=== PATIENT | male | born 1990 | race Caucasian/White ===

== ENCOUNTER 2022-01-31 17:06 | Outpatient (CLI) | payer MEDICAID, SELFPAY ==
--- NOTE | 2022-01-31 17:08 | RAD_ITS ---
STUDY: X-RAY - RIGHT KNEE REASON FOR EXAM: Male, 31 years old. Pain. TECHNIQUE: 4 view(s) of the knee. COMPARISON: None. FINDINGS: Normal visualized distal femur. Normal visualized proximal tibia and fibula. Normal proximal tibiofibular articulation. There is no acute fracture, dislocation or destructive osseous pathology. Normal medial femorotibial compartment. Normal lateral femorotibial compartment. Normal patellofemoral articulation. There is no demonstrated joint effusion. The soft tissue structures are unremarkable. RAD/Knee 4 or More Views IMPRESSION: Normal x-ray examination of the knee. Electronically Signed: Andrei Gutierrez DO at 18:01 EDT ,
== END 2022-01-31 23:59 | disposition home or self-care (01) ==
PROVIDERS: PCP Family Medicine; Referring Provider Physician Assistant; Visit Provider Physician Assistant
DX: M25.561 Pain in right knee (principal)
CPT/HCPCS: 73564

== ENCOUNTER 2022-02-08 09:58 | Outpatient (CLI) | payer MEDICAID, SELFPAY ==
--- NOTE | 2022-02-08 10:03 | RAD_ITS ---
STUDY: X-RAY - RIGHT TIBIA AND FIBULA REASON FOR EXAM: Male, 31 years old. hit right calf against his truck tailgate recently, pain TECHNIQUE: 2 view(s) of the tibia and fibula were obtained. COMPARISON: None. FINDINGS: Normal visualized tibia. Normal visualized fibula. The soft tissue structures are unremarkable. RAD/Tibia & Fibula 2 Views IMPRESSION: Normal x-ray examination of the tibia and fibula. Electronically Signed: Tapan Caputo MD ([place]) at 10:24 EDT ,
--- NOTE | 2022-02-08 10:03 | RAD_ITS ---
STUDY: X-RAY - RIGHT FOOT CLINICAL: Male, 31 years old. PAIN IN METATARSUS TECHNIQUE: 3 view(s) of the foot. COMPARISON: None. FINDINGS: Normal talus, calcaneus, and tarsal bones. There is loss of definition of the third more than secondary tarsal-metatarsal articulations. Small accessory ossicles adjacent to the calcaneocuboid articulation. Normal metatarsi. Normal metatarsophalangeal joint of the great toe. Normal tibial and fibular sesamoid bones. Normal interphalangeal joint of the great toe. Normal phalanges of the great toe. Normal second through fifth metatarsophalangeal joints. Normal interphalangeal joints and phalanges of the lesser toes. The soft tissue structures are unremarkable. RAD/Foot min 3 Views IMPRESSION: 1. No fracture or erosive process. 2. Possible fusion of the third and second tarsal-metatarsal articulations, query coalition/ankylosis. Electronically Signed: Tapan Caputo MD ([place]) at 10:24 EDT ,
== END 2022-02-08 23:59 | disposition home or self-care (01) ==
LOC: MTRAD 10:02
PROVIDERS: PCP Family Medicine; Referring Provider Family Medicine; Visit Provider Family Medicine
DX: M89.8X7 Other specified disorders of bone, ankle and foot (principal); M89.8X6 Other specified disorders of bone, lower leg
CPT/HCPCS: 73590; 73630

== ENCOUNTER 2022-06-14 09:27 | Outpatient (CLI) | payer MEDICAID, SELFPAY ==
--- NOTE | 2022-06-14 09:29 | RAD_ITS ---
STUDY: X-RAY - LEFT SHOULDER REASON FOR EXAM: Male, 31 years old. Pain following injury. TECHNIQUE: 4 view(s) of the shoulder. COMPARISON: None. FINDINGS: Normal glenohumeral articulation. Normal acromioclavicular joint. Normal acromion. Normal humeral head and visualized proximal humerus. The soft tissue structures are unremarkable. Normal visualized pulmonary apex. RAD/Shoulder min 2 Views IMPRESSION: Normal x-ray examination of the shoulder. Electronically Signed: Rip Taveras MD at 10:00 EDT ,
== END 2022-06-14 23:59 | disposition home or self-care (01) ==
LOC: MTRAD 09:29
PROVIDERS: PCP Family Medicine; Referring Provider Physician Assistant; Visit Provider Physician Assistant
DX: S49.92XA Unspecified injury of left shoulder and upper arm, initial encounter (principal)
CPT/HCPCS: 73030

== ENCOUNTER → 2022-06-25 | Outpatient (CLI) | payer MEDICAID, SELFPAY ==
--- NOTE | 2022-06-25 08:00 | MRI_ITS ---
STUDY: MRI LEFT SHOULDER REASON FOR EXAM: Decreased range of motion of left shoulder for 2 weeks, left shoulder injury, evaluate for rotator cuff tear. TECHNIQUE: Standardized fat and water weighted pulse sequences were obtained in all 3 orthogonal planes. COMPARISON: Radiographs 06/14/2022. FINDINGS: There is mild supraspinatus tendinosis (T2 coronal images 12-15) without discrete rotator cuff tear. Normal infraspinatus tendon. Normal subscapularis tendon. Normal teres minor tendon. Normal supraspinatus muscle. Normal infraspinatus muscle. Normal subscapularis muscle. Normal teres minor muscle. Normal glenohumeral articulation. There is a bone contusion of the greater tuberosity (T2 coronal images 11-14). There is a suspected SLAP lesion (T2 coronal images 9-13). Normal intracapsular long biceps tendon. Normal capsulo- ligamentous complex. Normal acromioclavicular articulation. There is a Type II morphology (curved), with a neutral orientation. There is a small volume of subacromial-subdeltoid bursal fluid (T2 coronal images 9-13). Normal visualized coracohumeral and coracoacromial ligaments. Normal deltoid muscle. Normal trapezius muscle. MRI/Upper Ext Joint Only(Routine) IMPRESSION: Mild supraspinatus tendinosis without demonstrated rotator cuff tear. Bone contusion of the greater tuberosity. Suspected SLAP lesion. Mild subacromial-subdeltoid bursitis. Electronically Signed: Calderon Myers MD at 9:10 EDT ,
== END | disposition home or self-care (01) ==
LOC: MRI 08:00
PROVIDERS: PCP Family Medicine; Visit Provider Orthopaedic Surgery Sports Medicine
DX: S46.012A Strain of muscle(s) and tendon(s) of the rotator cuff of left shoulder, initial encounter (principal); S40.012A Contusion of left shoulder, initial encounter
CPT/HCPCS: 73221

== ENCOUNTER 2022-09-24 16:30 | Outpatient (RCR) | payer MEDICAID, SELFPAY ==
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
--- NOTE | 2022-11-06 10:02 | HP.PT.NRP ---
IRENA TOURE was seen in my office for initial evaluation on 08/20/22. The following Plan of Care was established for this patient: Initial Frequency: 2x /Week Initial Duration: 4 Weeks Patient/Client Instruction: Educate patient on: Condition, Plan of Care For the Purpose of:: To decrease pain, To increase ROM, To improve muscle performance and motor function, To improve ability to perform ADL's, To increase tolerance to activity/condition/position, To improve ability of physical actions for home/community/work/leisure, To improve health of tissue, To decrease soft tissue restriction, To increase flexibility/ROM, To reduce risk of recurrence, To prevent re-injury, To improve tolerance to ADL's Therapeutic Exercise to Include: Strength training, Postural training, Flexibilty training, Passive ROM, Active ROM, Scapular Strength/Stabilization For the Purpose of:: To decrease pain, To increase ROM, To improve muscle performance and motor function, To improve ability to perform ADL's, To increase tolerance to activity/condition/position, To improve performance and independence with ADL's, To improve ability of physical actions for home/community/work/leisure, To improve health of tissue, To decrease soft tissue restriction, To increase flexibility/ROM, To prevent re-injury, To improve tolerance to ADL's Manual Therapy Techniques to Include: Mobilization, Passive ROM Comment: G-H For the Purpose of:: To decrease pain, To increase ROM, To improve health of tissue, To decrease soft tissue restriction, To improve tolerance to ADL's TENS: Yes IF ES: Yes Cryotherapy (ice pack, ice massage): Yes Thermo therapy (hot pack): Yes Ultrasound (thermal/non thermal): Yes For the Purpose of:: To decrease pain, To decrease swelling/inflammation, To improve health of tissue, To decrease soft tissue restriction This patient was last seen in our office . Pertinent comments regarding their Physical therapy will appear below: Patient was seen for PT for labral tear for ROM and strength shoulder thus doing well adequate to HEP At this point I will be discontinuing this patient from physical therapy. I would be happy to see this patient again in the future if found appropriate by the physician. Thank you! Tank Clifford, PT, Cert MDT, OCS Balance/Gait/Functional tests - Balance/Special Test Scores Quick DASH Score: 13.6350
== END 2022-09-24 19:00 | disposition home or self-care (01) ==
LOC: PT 16:30
PROVIDERS: PCP Family Medicine; Referring Provider Orthopaedic Surgery Sports Medicine; Visit Provider Orthopaedic Surgery Sports Medicine
DX: S43.432D Superior glenoid labrum lesion of left shoulder, subsequent encounter (principal); S40.012D Contusion of left shoulder, subsequent encounter; S46.012D Strain of muscle(s) and tendon(s) of the rotator cuff of left shoulder, subsequent encounter; X58.XXXD Exposure to other specified factors, subsequent encounter
CPT/HCPCS: 97110; 97161

== ENCOUNTER 2024-01-08 10:56 | Day surgery (SDC) | payer OTHER, SELFPAY ==
[2024-01-08] VITALS (8 sets, daily range): BP systolic 141–186; BP diastolic 88–157; PULSE 79–113; RESP 16–17; TEMP 36.2–37.2; O2SAT 96–100; BMI 21.4
--- OUTSIDE RECORDS SUMMARY | 2024-01-08 11:21 | XMS RPT_ITS | CCD ---
Author Name Unknown Address [facility] [address] [place] [address] Organization [facility] Care Team Providers Care Full Stack Engineer Name Role Phone Shreyas Hutchison Admitting Unavailable Shreyas Hutchison Attending Unavailable No Doctor Assigned, Nodr Primary Care Unavail able Shreyas Hutchison Admitting Unavailable Shreyas Hutchison Attending Unavailable No Doctor Assigned, Nodr Primary Care Unavail able CANDIE PRINCE Attending Unava ilJIMMIE Pro Primary Care Unavailable Results Test Name Value Interpretation Reference Range Facil ity Encounters Encounter Date Encounter Type Care Provider Facility Start: 05-05-2021 End: 05-05-2021 Emergency department patient visit CANDIE PRINCE [facility] Start: 03-14-2019 End: 03-15-2019 Patient encounter procedure Shreyas Hutchison Facility:[facility] Start: 03-14-2019 Patient encounter procedure Facility:[id number] Payers Date Payer Category Payer Unknown [id number] 2019 Unknown 1990 Unknown [id number] 1990 Unknown [id number] 1990 Unknown [id number] 2. [id number] 1990 Unknown [id number] 2.16 [id number] Unknown [id number] Clinical Note 07-10-2021 Note Date & Type Note Facility 07-10-2021 Note HNO ID: [id number] Author: Loren Mares RN Service: Gastroenterology Author Type: Registered Nurse Type: Nursing Progress Note Filed: 07/10/2021 3:29 PM Note Text: Physician at bedside [facility] Clinical Note 07-10-2021 Note Date & Type Note Facility 07-10-2021 Note HNO ID: [id number] Author: Loren Mares RN Service: Gastroenterology Author Type: Registered Nurse Type: Nursing Progress Note Filed: 07/10/2021 3:40 PM Note Text: Patient states readiness for discharge. Assisted with dressing. [facility] Clinical Note 07-10-2021 Note Date & Type Note Facility 07-10-2021 Note HNO ID: [id number] Author: Loren Mares RN Service: Gastroenterology Author Type: Registered Nurse Type: Nursing Progress Note Filed: 07/10/2021 3:40 PM Note Text: Discharge instructions reviewed with patient. States understanding [facility] Progress note 05-25-2021 Note Date & Type Note Facility 05-25-2021 Note HNO ID: [id number] Author: Heather Pendleton APRN.DAJA Service: ? Author Type: Nurse Practitioner Type: Progress Notes Filed: 05/25/2021 1:00 PM Note Text: [facility] Summary Purpose Family History No Family History Records FoundNo Family History Records FoundNo Family History Records FoundNo Family History Records FoundNo Family History Records Found Advance Directives No Advanced Directives Records FoundNo Advanced Directives Records FoundNo Advanced Directives Records FoundNo Advanced Directives Records FoundNo Advanced Directives Records Found Additional Source Comments (unrecognized sect ion and content) No Status Records FoundNo Status Records FoundNo Status Records FoundNo Status Records FoundNo Status Records Found INFORMATION SOURCE (unrecogn ized section and content) DATE CREATED AUTHOR AUTHOR'S ORGANIZ ATION 03/25/2019 [facility] DATE CREATED AUTHOR AUTHOR'S ORGANIZ ATION 12/25/2020 [facility] ([place] DATE CREATED AUTHOR AUTHOR'S ORGANIZ ATION 05/12/2021 [facility] DATE CREATED AUTHOR AUTHOR'S ORGANIZ ATION 12/13/[address] [facility] FOR RECORDS PERTAINING TO PATIENTS WHO ARE OR HAVE BEEN ENROLLED IN A CHEMICAL DEPENDENCY/SUBSTANCEABUSE PROGRAM, SOME INFORMATION MAY BE OMITTED. This clinical summary was aggregated from multiple sources. Caution should be exercised in using it in the provision of clinical care. This summary normalizes information from multiple sources, and as a consequence, information in this document may materially change the coding, format and clinical context of patient data. In addition, data may be omitted in some cases. CLINICAL DECISIONS SHOULD BE BASED ON THE PRIMARY CLINICAL RECORDS. [facility]. provides no warranty or guarantee of the accuracy or completeness of information in this document.
[2024-01-08] MEDS: Lactated Ringers 1,000 ML 15 ML IV (11:23)
--- NOTE | 2024-01-08 13:04 | HP.PCM_ITS ---
HPI - General HPI Narrative IRENA TOURE, is a 33 M who presents for left shoulder arthroscopy subacromial decompression and biceps tenodesis. no changes to h and p. ok to proceed. shoulder marked. rab and narcotic counselling, post op instructions discussed. MR#: [id number] Acct: [id number] Name: IRENA TOURE Rep #: [id number] : 1990 Provider: Dr. Rickey Moura MD Age/Sex: 33/M [place] [facility] [place] Status: Signed Intake Vital Signs 08/13/2310:04 Height 5 ft 10 in Intake Visit Reasons: LEFT SHOULDER Chief Complaint: Left shoulder Accompanied by: Self Is patient in pain?: Yes Allergies No Known Allergies Allergy (Unverified 12/03/23 15:50) Medications NK 12/03/23 [History Confirmed 12/03/23] PFSH Medical History Contusion of left shoulder Impetigo Internal derangement of right knee Strain of left rotator cuff capsule Superior labrum eabuaxbe-bp-nmdsotfgm (SLAP) tear of left shoulder Surgical History Hx of vasectomy Family History Mother Heart disease Hypertension Social History Smoking Status: Current every day smoker tobacco type: cigarettes alcohol intake: current alcohol intake frequency: 0-2 drinks per day HPI LEFT SHOULDER Details: This documentation accurately reflects the service provided and the decisions made by me, Dr. Rickey Moura MD 12/03/23 1010. Part of today?s visit was documented by [ ], acting as scribe. IRENA TOURE is a 33 year old M here today for FU L shoulder pain, slap tear, contusion and impingement syndrome. Had a cortisone injection. 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 worse with abduction. Ortho Exam General General: Yes no acute distress and Yes well groomed Neurologic: Yes alert and Yes oriented x3 Psychologic: Yes reasonable and appropriate Left Shoulder Skin/Wound: Yes CDI, No ecchymosis, No erythema and No swelling Testing: Yes Hawkin's, Yes Neer's, Yes TTP Biceps, No Drop Arm and Yes [place] SHOULDER: ++ pain w even gentle rom Supplemental Info MRI/Upper Ext Joint Only(Routine) IMPRESSION: Mild supraspinatus tendinosis without demonstrated rotator cuff tear. Bone contusion of the greater tuberosity. Suspected SLAP lesion. Mild subacromial-subdeltoid bursitis. Electronically Signed: Calderon Myers MD at 9:10 EDT , Coding Level of Care Code Off vis,est,level 4 Diagnoses Superior labrum hofxsrrv-gp-spasohbuv (SLAP) tear of left shoulder S43.432A Contusion of left shoulder S40.012A Strain of left rotator cuff capsule S46.012A Assessment and Plan Assessment and Plan (1) Superior labrum yxndrvvx-os-txvhmkcrl (SLAP) tear of left shoulder: Status: Acute Plan: 33-year-old man with ongoing left shoulder pain. 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 I think this is more likely a bursitis and tendinitis rather than pain from a SLAP tear although he does occasionally complain of some mechanical symptoms of the shoulder. The options at this point would be again similar to prior rest ice anti- inflammatories he is taking those activity modifications rest cortisone injections or considering proceeding with left shoulder arthroscopy subacromial decompression and biceps tenodesis. We discussed the pros and cons risks and benefits of surgical management and the recovery associated with this 2 weeks in a sling 2 to 3 months prior to returning to any sort of significant strengthening and lifting. The patient understands he is a half a pack a day smoker is trying to quit but that can increase his risk of complications like infection and other things. He understands signed the consent form for left shoulder arthroscopy, subacromial decompression, biceps tenodesis. He understands no further questions or concerns Pros and cons risks and benefits were discussed with the patient including but not limited to infection, pain, stiffness, bleeding, damage to surrounding structures, neurovascular injury, recurrence or retear, failure or wear of hardware or fixation, instability, fracture, deep vein thrombosis and pulmonary embolism, anesthetic risks, , patient dissatisfaction, need for further surgery and other risks. Patient understood and wished to proceed with surgery, and signed the informed consent documentation.. [facility] Medical History Alcohol use Contusion of left shoulder Heartburn Impetigo Internal derangement of right knee Leg cramps MVP (mitral valve prolapse) Smoker Strain of left rotator cuff capsule Superior labrum ockuckyi-sp-jeqylgosn (SLAP) tear of left shoulder Home Medications meloxicam 15 mg tablet 15 mg PO DAILY PRN pain 12/30/23 [History Last Taken U nknown] Allergy/AdvReac Type Severity Reaction Status Date / Time No Known Allergies Allergy Verified 01/08/24 11:06 Family History Mother Heart disease Hypertension Surgical History Hx of vasectomy Social History Smoking Status: Current every day smoker tobacco type: cigarettes alcohol intake: current alcohol intake frequency: 0-2 drinks per day Vital Signs Vital Signs Vital Signs: 01/08/24 11:23 01/08/24 11:23 Temperature 99 F Temperature Source Temporal Pulse Rate 84 Respiratory Rate 17 Respiratory Pattern Normal Blood Pressure 164/93 H Blood Pressure Mean 116 Blood Pressure Source Monitor Blood Pressure Position Semi-Fowlers Blood Pressure Location Right Arm Pulse Ox 100 Oxygen Delivery Method Room Air Weight Weight: 149 lb 14.629 oz Body Mass Index (BMI) 21.4
[2024-01-08] MEDS: Cefazolin 2 GM in 0.9% Normal Saline (100mL Bag) 100 ML IV (13:28)
[2024-01-08] MEDS: Epinephrine (1 mg/ml) 1 MG/ML VIAL (13:52)
--- NOTE | 2024-01-08 14:44 | OP.PCM_ITS ---
Problems Associated Problem List Diagnoses (1) Superior labrum xkpiadqa-hb-qphrvralb (SLAP) tear of left shoulder: (2) Impingement of left shoulder: Report of Operation Date of Procedure: 01/08/24 Pre-Operative Diagnosis: Left shoulder impingement syndrome and SLAP tear Post-Operative Diagnosis: Same Surgery/Procedure Performed:: Left shoulder arthroscopy, subacromial decompression, biceps tenodesis and debridement limited Surgeon: Rickey Moura Type of Anesthesia: Block,Regional and General Anesthesiologist: Gerry Sims Estimated Blood Loss (mL): 50 Description of Procedure: Patient brought the operating room theater. Placed supine on the table. General anesthesia induced. 2 g IV Ancef administered prior to start of the procedure. Patient transferred to the left side up lateral decubitus beanbag positioner. Axillary roll used SCDs and legs all bony prominences padded. 10 p ounds of inline traction with the arm in 35 degrees of abduction was used. Upper extremity prepped and draped in the usual sterile fashion with chlorhexidine-based prep solution allowing over 3 minutes drying time prior to draping. Preoperative timeout performed to confirm the site patient with surgery. Began by inserting the scope into the intra-articular portion of the shoulder. Did a full diagnostic arthroscopy. Cartilage on the glenoid and humeral head was normal. Normal rotator interval normal, I made a standard inside-out spinal needle localized to anterior portal through the rotator interval just posterior to the biceps tendon. Biceps tendon had type 2 slap tear, performed intra articular tenotomy, smoothed remaining superior labrum. Slight cracking of posterior labrum. Slight fraying of the anterior labrum gently debrided. Slight undersurface fraying <10% of anterior leading edge SS, debrided to stable margins. Rest of cuff and SSc normal. arthroscope withdrawn into inserted into the subacromial space. Lateral portal established. Did a complete bursectomy for moderate amount of normal-appearing bursa. Did a subacromial decompression to flat margins, very mild downsloping. Arthroscopic pictures were taken and saved onto the system scope withdrawn. Next I turned my attention to performing the subpectoral biceps tenodesis. Identified the long head of the biceps tendon at the proximal upper medial aspect of the humerus just distal to the pectoralis major insertion. Made a small 1 inch incision over this carried dissection down through skin and subcutaneous tissue to meticulous hemostasis. Incised the fascia in line with skin incision. Dissected medial to the short head of the biceps. Dissected distally to the pectoralis major. Identified the long head of biceps deliver this through the incision. Shorten the tendon. Did the locking loop construct for the Arthrex internally locking biceps cortical button tension tight button. I used a #5 suture with the loop and around the tendon in the fashion according to the guide with the suture piercing distal to the locking loop and coming out the inferior surface of the tendon. Left approximately 3 cm from the musculotendinous junction. I then drilled unicortical hole in the mid aspect of the humerus. Thorough irrigation and suction performed followed by inserting the button flipping this uni cortically and tensioning the biceps down and cutting the suture short for knotless repair. Skin cleaned with wet dry dressing followed by closure of the portals with 3-0 Monocryl sutures and Steri-Strips Adaptic 4 x 4 gauze ABD dressing cloth tape and abduction pillow sling for the upper extremity. Patient woken up from the general anesthetic transferred off the operating table taken postanesthetic care unit in stable addition. All sponge needle instrument counts were correct no complications. cpt [id number], [id number], ?[id number] Complications none Admit VTE Documentation VTE Present on Admission: No VTE Mechan Device Prophylaxis: SCD's VTE Pharm Prophylaxis ordered?: No Reason prophylaxis not ordered:: Treatment Not Indicated Procedures Musculoskeletal [id number]: Other Procedure See Report
--- NOTE | 2024-01-08 14:55 | DCINST_ITS ---
Discharge Instructions Diet Discharge Diet: No restrictions Activity Ice area for (Minutes): 10 Lifting Restrictions: pendulums 4x/day, ok for gentle hand wrist elbow lifting, nothing over 5 lb Dressing / Incision Call your doctor if your incision/area has: Continuous Slow Oozing, Sudden Increased Bleeding, Increased Pain/ Swelling, Increased Redness, Foul Smelling Discharge and Swelling at the incision site Remove Dressing in: leave in place till F/U Follow Up Care Please Follow Up With: Rickey Moura MD Test Results: Test results from this visit will be discussed in further detail at your follow- up appointment, if applicable. Discharge Plan Admission Attending Provider: Rickey Moura Primary Care Provider: Noah Amador Instructions Patient Instructions: After Shoulder Arthroscopy Discharge Orders/Prescriptions Prescriptions: New oxycodone-acetaminophen [Endocet] 5-325 mg tablet 1 tab PO Q4H MDD 6 PRN (Reason: pain) 5 Days Qty: 30 0RF No Action meloxicam 15 mg tablet 15 mg PO DAILY PRN (Reason: pain) Referrals / Follow Up: Noah Amador MD [Primary Care Provider] - Rickey Moura MD [Med Staff - Active Staff] - Disposition Disposition (needs filled in before D/C Order can be placed): Home, Self Care
== END 2024-01-08 15:43 | disposition home or self-care (01) ==
LOC: SDC 10:59 → AC 11:00
PROVIDERS: PCP Family Medicine; Referring Provider Orthopaedic Surgery Sports Medicine; Visit Provider Orthopaedic Surgery Sports Medicine
PROC: (CPT 29805; principal; 2024-01-08 12:55)
DX: S43.432A Superior glenoid labrum lesion of left shoulder, initial encounter (principal); S40.012A Contusion of left shoulder, initial encounter; S46.012A Strain of muscle(s) and tendon(s) of the rotator cuff of left shoulder, initial encounter; M75.42 Impingement syndrome of left shoulder; M75.80 Other shoulder lesions, unspecified shoulder; Z98.52 Vasectomy status; F17.210 Nicotine dependence, cigarettes, uncomplicated; X58.XXXA Exposure to other specified factors, initial encounter
CPT/HCPCS: 29828; 29826; 01630; 64450; J7120; J2405

== ENCOUNTER 2024-04-01 07:30 | Outpatient (RCR) | payer OTHER, SELFPAY ==
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
--- NOTE | 2024-04-01 07:57 | HP.PTDCSUM ---
Discharge Summary D/C summary: It has been my pleasure to treat IRENA TOURE referred by Dr. Rickey Moura MD, with the diagnosis of L SLAP repair with biceps tenodesis 01/08/24 for a total of 6 visit(s). Discharge Date: 04/01/24 Please see the following information for a summary of their discharge status. Subjective Subjective: Pt reports that he is going to the gym and working out and feels good. Pt has no questions with the HEP that he was given last visit. Pain L shoulder: Pain Intensity (Out of 10): 2 Overall Improvement % Improvement: 95 Objective Objective/Function: AROM L shoulder WFL UE MMT R shoulder flex 17 and L 16.7 R shoulder ABD 16.3 and L 12 R shoulder ER 23.1 and L 17.7 Goals Goal 1:: Decrease L shoulder pain x 50% to aid with sleep Goal Progress: Goal Met Goal 2:: Increase L shoulder strength to equal 90% of R shoulder strength to aid with RTW duties Goal 3:: Increase L shoulder ROM flex and abd x 50 degrees to aid with overhead lifting activity Goal Progress: Goal Met Goal 4:: I with HEP Goal Progress: Goal Met Plan Plan: DC PT to HEP D/C Information Discharge Comments: DC PT. Pt is indep in HEP and own gym routine d/c sentence: If there are questions or concerns regarding this patient's physical therapy, please feel free to call me at [phone]. Thank you for the referral of this patient. Sincerely, Radha Silva, MPT Balance/Gait/Functional tests Balance/Special Test Scores Quick DASH Score: 2.2725 Improvement % Improvement: 95
== END 2024-04-01 12:51 | disposition home or self-care (01) ==
LOC: PT 07:30
PROVIDERS: PCP Family Medicine; Referring Provider Orthopaedic Surgery Sports Medicine; Visit Provider Orthopaedic Surgery Sports Medicine
DX: S43.432D Superior glenoid labrum lesion of left shoulder, subsequent encounter (principal); M25.812 Other specified joint disorders, left shoulder
CPT/HCPCS: 97110; 97140; 97161; 97530

== ENCOUNTER 2024-08-04 00:21 | Emergency (ER) | payer MEDICAID, SELFPAY ==
[2024-08-04 00:22] VITALS: BP 201/101; PULSE 123; RESP 20; TEMP 36.8; O2SAT 97; BMI 20.6
[2024-08-04] MEDS: Tetracaine 0.5% Ophthalmic Bottle 1 DRP EACH EYE (00:46)
[2024-08-04] MEDS: Fluorescein 1 MG STRIP 1 STRIP EACH EYE (01:28)
--- NOTE | 2024-08-04 01:45 | EX.ED.VIS.EY ---
HPI History of Present Illness Chief Complaint: Eye Problem Informant: patient Narrative Narrative: Patient is a 33-year-old male with history of mitral valve prolapse. He denies any history of contact lens use. 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 He states he does not remember anything injuring his eye but that approximately 4 to 5 hours after finishing his welding exposure he began complaining of bilateral eye redness irritation and pain with increased tearing and light sensitivity and secondary to this he comes in for evaluation [facility] Medical History Impingement of left shoulder Alcohol use Heartburn Leg cramps Smoker MVP (mitral valve prolapse) Impetigo Superior labrum yqzfzxdl-ma-ynrgrxmfx (SLAP) tear of left shoulder Contusion of left shoulder Strain of left rotator cuff capsule Internal derangement of right knee Home Medications ?Medication ?Instructions ?Recorded ?Last Taken ?Type ciprofloxacin HCl 0.3 % eye drops 2 drp EACH EYE 4X/DAY 5 days #10 mL 08/04/24 Unknown Rx ketorolac 0.5 % eye drops 2 drp EACH EYE TID PRN pain #10 mL 08/04/24 Unknown Rx Allergy/AdvReac Type Severity Reaction Status Date / Time No Known Allergies Allergy Verified 08/04/24 00:26 Family History Mother Heart disease Hypertension Surgical History History of arthroscopy of left shoulder Hx of vasectomy Social History Smoking Status: Current every day smoker tobacco type: cigarettes alcohol intake: current alcohol intake frequency: 0-2 drinks per day ROS ROS ED Constitutional Constitutional ED: Denies chills or fever(s) Eyes Eyes: Reports other Details: Positive eye redness tearing and pain ENT ENT ED: Denies sore throat Cardiovascular Cardiovascular: Denies chest pain Respiratory/Chest Respiratory/Chest: Denies cough or dyspnea Gastrointestinal Gastrointestinal: Denies abdominal pain, diarrhea, nausea or vomiting Genitourinary Genitourinary ED: Denies dysuria Musculoskeletal Musculoskeletal: Denies myalgias Integumentary Denies rash Neurologic Neurologic: Denies headache(s) Hematologic/Lymphatic Hematologic/Lymphatic: Denies easy bleeding or easy bruising EXAM Physical Exam Const Vital Signs: 08/04/24 00:22 Temperature 98.2 F Temperature Source Oral Pulse Rate 123 H Respiratory Rate 20 H Blood Pressure 201/101 H Blood Pressure Mean 134 Pulse Ox 97 Oxygen Delivery Method Room Air Positive well nourished and well developed General Appearance ED: well developed HEENT HEENT Narrative: Normocephalic atraumatic Eyes PERRL and EOMs intact bilaterally Eyes Narrative: Pupils are equal and reactive to light and accommodation and extraocular muscles are intact Bilateral scleral injection is present with increased tearing Upper lid was everted there is no retained foreign body Stephens lamp exam reveals no uptake of dye going against corneal abrasion No ulcer noted Patient had complete relief of pain with tetracaine Neck supple Resp normal respiratory effort and clear to auscultation bilaterally Cardio regular rate and regular rhythm Extremity normal to inspection Neuro oriented x3, CN's II-XII intact bilaterally, moves all extremities and no sensory deficits noted Sensorium / Orientation: alert Motor Exam: strength 5/5 throughout Psych mental status grossly normal Skin no rashes or lesions noted and no wounds MDM MDM MDM Narrative Medical decision making narrative: Patient arrived to the ER hypertensive but otherwise with stable vitals. He denies any history of contact lens use or eye trauma but did report exposure to UV light earlier today. Differential diagnosis is for infectious process such as conjunctivitis versus corneal abrasion versus UV keratitis. Physical exam did not reveal any signs of retained foreign object and Stephens lamp exam revealed no uptake of dye going against corneal abrasion. By exam there is no corneal ulcer either and patient's conjunctiva are normal bilaterally and he denies any known sick contacts going against conjunctivitis. History and exam is consistent with UV keratitis/welders arc but at this time as he does not wear contact lenses he does not have signs of globe rupture there is no need for emergent ophthalmology consultation. Patient will be placed on antibiotics to prevent infectious process from the UV keratitis as well as given anti-inflammatory eyedrops but at this time without retained foreign body globe rupture or secondary infection such as herpes zoster there is no need for further workup History & Record Review Discussion w/independent historian: Patient Discharge Plan Triage Chief Complaint: Eye Problem ED Provider: Rick Haider Dx/Rx/DC Orders Clinical Impression: UV keratitis, Hypertension, Mitral valve prolapse, Tobacco use Instructions: ED Flash Burn to Eye Prescriptions: New ciprofloxacin HCl 0.3 % drops 2 drp EACH EYE 4X/DAY 5 Days Qty: 10 0RF ketorolac 0.5 % drops 2 drp EACH EYE TID PRN (Reason: pain) Qty: 10 0RF Primary Care Provider: Noah Amador Referrals: Noah Amador MD [Primary Care Provider] - Rickey Fish MD [Med Staff - Active Staff] - Activity Restrictions/Additional Instructions: Please use the antibiotic eyedrops as directed to prevent infection and the ketorolac eyedrops for improved pain control. Your eye should heal spontaneously over the next 3 to 5 days but if symptoms worsen or you have any further concerns return to the ER or follow-up with ophthalmology for repeat evaluation. Print Language: Kiswahili Disposition Disposition: Home, Self Care Discharge Date/Time: 08/04/24 01:56
[2024-08-04 01:55] VITALS: BP 165/70; PULSE 82; RESP 18; TEMP 36.8; O2SAT 97
== END 2024-08-04 01:56 | disposition home or self-care (01) ==
PROVIDERS: Emergency Provider Emergency Medicine; PCP Family Medicine; Visit Provider Emergency Medicine
DX: H57.13 Ocular pain, bilateral (principal); I34.1 Nonrheumatic mitral (valve) prolapse; I10 Essential (primary) hypertension; Z98.52 Vasectomy status; Z87.891 Personal history of nicotine dependence; H16.133 Photokeratitis, bilateral; W89.0XXA Exposure to welding light (arc), initial encounter
CPT/HCPCS: 72040; 99282

== ENCOUNTER → 2024-08-04 | Outpatient (CLI) | payer MEDICAID, SELFPAY ==
--- NOTE | 2024-08-04 16:30 | RAD_ITS ---
INDICATION: neck pain EXAMINATION/TECHNIQUE: X-RAY - XR Spine Cervical 2 or 3 Views COMPARISON: No relevant prior comparison study available FINDINGS: VERTEBRAE: Preserved vertebral body height. No fracture. No spondylolisthesis. Preservation of the normal cervical lordosis. No significant facet arthropathy. DISCS: Disc spaces are maintained. NECK SOFT TISSUES: No prevertebral soft tissue widening. LUNG APICES: Clear. RAD/Cerv Spine 2 or 3 Views IMPRESSION: No evidence of acute fracture or spondylolisthesis. Electronically Signed: Sara Pinto MD at 8:41 EDT ,
== END | disposition home or self-care (01) ==
PROVIDERS: PCP Family Medicine; Referring Provider Family Medicine; Visit Provider Family Medicine
DX: M54.2 Cervicalgia (principal)
CPT/HCPCS: 72040

== ENCOUNTER 2025-03-29 18:31 | Inpatient (IN) | payer MEDICAID, SELFPAY ==
[2025-03-29] VITALS (7 sets, daily range): BP systolic 115–165; BP diastolic 55–106; PULSE 74–116; RESP 15–19; TEMP 36.4–36.9; O2SAT 95–98; BMI 23.4; BMI 21.4
[2025-03-29 19:02] LABS: Absolute Lymphocyte Count 2.62 X10^3/uL (0.83-4.51); Absolute Neutrophil Count 7.2 X10^3/uL (2.0-7.7); Basophil# 0.11 X10^3/uL; Eosinophils% 1.8 % (0-5); Hematocrit 46.4 % (40-54); Hemoglobin 16.5 g/dL (13.0-16.5); Lymphocyte # 2.62 X10^3/ul (0.83-4.51); Lymphocyte % 23.2 % (19-41); Mean Corp Hgb Conc 35.6 g/dL (32-36); Mean Corpuscular Hgb 32.7 pg (27.0-32.0); Mean Corpuscular Volume 92.1 fL (80-94); Mean Platelet Vol. 10.2 fl (6.2-12.0); Monocyte# 1.12 X10^3/uL; Monocyte% 9.9 % (0-10); NRBC Flagged by Analyzer 0 % (0-5); Neutrophil % 63.7 % (47-70); Platelet Count 277 K/mm3 (150-450); RBC Distribution Width CV 12.3 % (11.6-14.6); RBC Distribution Width SD 41.3 fl (35.1-43.9); Red Blood Count 5.04 M/mm3 (4.6-6.2); White Blood Count 11.3 K/mm3 (4.4-11.0)
--- NOTE | 2025-03-29 19:55 | EDS_ITS ---
HPI History of Present Illness Chief Complaint: [facility]TOH [facility] Medical History Impingement of left shoulder Alcohol use Heartburn Leg cramps Smoker MVP (mitral valve prolapse) Impetigo Superior labrum mbvvcwoq-tl-lvxktuizr (SLAP) tear of left shoulder Contusion of left shoulder Strain of left rotator cuff capsule Internal derangement of right knee Home Medications ?Medication ?Instructions ?Recorded ?Last Taken ?Type escitalopram oxalate 10 mg tablet 10 mg PO DAILY 03/29 Unknown History propranolol 80 mg capsule,24 80 mg PO QHS 03/29/25 Unk nown History hr,extended release Allergy/AdvReac Type Severity Reaction Status Date / Time No Known Allergies Allergy Verified 03/29/25 18:31 Family History Mother Heart disease Hypertension Surgical History History of arthroscopy of left shoulder Hx of vasectomy Social History Smoking Status: Current every day smoker tobacco type: cigarettes alcohol intake: current alcohol intake frequency: 0-2 drinks per day EXAM Physical Exam Const Vital Signs: 03/29/25 18:31 03/29/25 20:00 03/29/25 20:14 Temperature 98.1 F 98.5 F Temperature Source Oral Oral Pulse Rate 116 H 91 95 Respiratory Rate 19 H 15 18 Blood Pressure 165/106 H 144/79 H 134/103 H Blood Pressure Mean 125 100 113 Blood Pressure Source Monitor Pulse Ox 98 97 97 Oxygen Delivery Method Room Air Room Air Room Air 03/29/25 21:00 03/29/25 21:47 03/29/25 21:58 Temperature 97.5 F L Temperature Source Pulse Rate 85 74 Respiratory Rate 18 18 Blood Pressure 119/55 L 115/62 115/62 Blood Pressure Mean 76 79 79 Blood Pressure Source Pulse Ox 95 96 96 Oxygen Delivery Method Room Air MDM MDM MDM Narrative Medical decision making narrative: HISTORY OF PRESENT ILLNESS: Chief complaint: Alcohol intoxication 34-year-old male history of alcohol abuse presents concern for alcohol detox states his last drink was 5 minutes ago. He further states he drinks approximately 12 to 1812 ounce twisted teas daily. He states further states he has no physical complaints at this time no headaches, no vomiting no abdominal pain. No blood in his stool. States he is never had alcohol withdrawal seizure. States he is never been an inpatient detox program. REVIEW OF SYSTEMS: Pertinent positives: Alcohol intoxication Pertinent negatives: As per HPI PHYSICAL EXAM: Nursing triage notes reviewed, Vital signs reviewed Constitutional: please see [facility] HENT: MMM Eyes: Pupils equal round and reactive to light, Extraocular muscles intact Neck: No stridor, no JVD, full neck ROM Lungs: Clear to auscultation, No wheezing or rales. No increased work of breathing, no conversational dyspnea, no accessory muscle use, no nasal flaring. No respiratory distress noted Heart: Regular rate and rhythm, No murmurs, No rubs and No gallops, 2+ distal pulses (radial, femoral, posterior tibial) in all extremities Abdomen: Soft, there is no tenderness, rigidity, rebound or guarding, no obvious peritoneal signs, no palpable pulsatile abdominal masses, no auscultated abdominal bruit : No CVAT Extremities: No edema Neuro: No new focal neurological deficits, cranial nerves II through XII intact, 5/5 strength in all present extremities. Intact sensation to light touch in all present extremities, 2+ reflexes bilateral patella tendons. Skin: No rash or lesions noted MEDICAL DECISION MAKING: Chief Complaint: please see [facility] External records reviewed: Reviewed prior inpatient records Factors affecting care: Alcohol abuse Social determinants of health: Daily alcohol use History obtained from others: The patient's father Consults: Internal medicine (Dr. Ward) [facility] Narrative: The patient was initially tachycardic at a heart rate of 116, hypertensive with a blood pressure 160/106, he is afebrile. Medical clearance labs were placed in triage secondary to poor department on dynamics including high-volume high acuity. Triage labs included CBC, serum alcohol, urine drug screen CMP. After evaluating the patient I added: 1 L normal saline, Zofran, Ativan and phenobarbital ALL IMAGES (IF OBTAINED) HAVE BEEN PERSONALLY REVIEWED AND INTERPRETED BY MYSELF. CBC with leukocytosis suggestive of systemic inflammation, no anemia or thrombocytopenia CMP without significant [place] normalities, noted metabolic acidosis with bicarb of 19 and anion gap suggestive of endorgan hypoperfusion versus alcoholic ketoacidosis, no signs of hepatobiliary pathology obstruction Serum alcohol 246 Urine tox cream positive for cannabinoids otherwise negative On re-evaluation patient vital signs improved with blood pressure 115/62, heart rate improved to 74. He is admitted under MedSurg to Dr. Rasmussen for alcohol withdrawal. The patient and/or family, caregivers express understanding. The patient and/or family, caregivers agrees with the plan. Shared decision making: I will have a discussion with the patient and or visitors regarding risk/benefits of further testing or admission. They will be made aware of of the risk/benefits inherent in this decision they will be given the opportunity to voice understanding. Total critical care time today provided was at least 0 minutes. This excludes separately billable procedures. Critical care time (if documented) is secondary to the patient having high probability of clinically significant/life threatening deterioration in the patient's condition which required my urgent intervention. Impression: 1. History of alcoholism 2. Alcohol withdrawal Dispo: Discharge home This note was generated with [employer] dictation software. It may contain incorrect words, spelling, and punctuation that were not noted in review of the chart prior to signing. Lab Data Labs: Laboratory Results - last 24 hr 03/29/25 18:53 WBC 11.3 H RBC 5.04 Hgb 16.5 Hct 46.4 MCV 92.1 MCH 32.7 H MCHC 35.6 RDW Std Deviation 41.3 RDW Coeff of Gladys 12.3 Plt Count 277 MPV 10.2 Immature Gran % (Auto) 0.400 Neut % (Auto) 63.7 Lymph % (Auto) 23.2 [place] % (Auto) 9.9 Eos % (Auto) 1.8 Baso % (Auto) 1.0 Absolute Neuts (auto) 7.2 Absolute Lymphs (auto) 2.62 Nucleated RBC % 0 Sodium 136 Potassium 3.3 Chloride 98 Carbon Dioxide 19.5 L Anion Gap 18 H BUN 15 Creatinine 1.03 Estim Creat Clear Calc 104.34 Est GFR (MDRD) Non-Af 98 BUN/Creatinine Ratio 14.3 Glucose 107 H Calcium 9.5 Total Bilirubin 0.63 AST 30 ALT 31 Alkaline Phosphatase 56 Total Protein 7.5 Albumin 4.9 Globulin 2.6 Albumin/Globulin Ratio 1.9 Urine Opiates Screen NEGATIVE U Buprenorphine Qual NEGATIVE Ur Oxycodone Screen NEGATIVE Urine Methadone Screen NEGATIVE Urine Fentanyl Screen NEGATIVE Ur Barbiturates Screen NEGATIVE Ur Phencyclidine Scrn NEGATIVE Ur Amphetamines Screen NEGATIVE U Benzodiazepines Scrn NEGATIVE Urine Cocaine Screen NEGATIVE U Cannabinoids Screen PRESUMPTIVE POSITIVE Ethyl Alcohol 246.0 H Discharge Plan Triage Chief Complaint: ETOH Intox ED Provider: Kevin Mir Dx/Rx/DC Orders Prescriptions: No Action escitalopram oxalate 10 mg tablet 10 mg PO DAILY propranolol 80 mg capsule,extended release 24 hr 80 mg PO QHS Primary Care Provider: Noah Amador Referrals: Noah Amador MD [Primary Care Provider] - Print Language: Serbian
[2025-03-29 19:58] LABS: ALB/GLOB Ratio 1.9 RATIO (0.9-2.4); AST(SGOT) 30 U/L (<=37); Alanine Aminotransfer ALT/SGPT 31 U/L (<=46); Albumin, Serum 4.9 g/dL (3.5-5.0); Alkaline Phosphatase 56 U/L (40-129); Anion Gap 18 (5-15); BUN 15 mg/dL (4-19); BUN/Creat Ratio 14.3 RATIO (10-20); Calcium,Total 9.5 mg/dL (7.6-11.0); Carbon Dioxide 19.5 mmol/L (21.0-32.0); Chloride 98 mmol/L (98-108); Creatinine, Serum 1.03 mg/dL (0.70-1.20); EST Glomerular Filtration Rate 98 (>60); Estimated Creatinine Clearance 104.34 ml/min (50-250); Globulin 2.6 g/dL (2.2-4.2); Glucose 107 mg/dL (70-99); Potassium 3.3 mmol/L (3.3-5.1); Protein, Total 7.5 g/dL (5.9-8.4); Sodium Level 136 mmol/L (133-145); Total Bilirubin 0.63 mg/dL (0.00-1.30)
[2025-03-29 20:06] LABS: Amphetamine Urine NEGATIVE (<1000 ng/mL); Barbiturate Urine NEGATIVE (< 200 ng/mL); Benzodiazepine Urine NEGATIVE (< 200 ng/mL); Buprenorphine Urine NEGATIVE (< 200 ng/mL); Cocaine Urine NEGATIVE (< 300 ng/mL); Fentanyl, Urine NEGATIVE; Methadone Urine NEGATIVE (< 300 ng/mL); Opiates Urine NEGATIVE (< 300 ng/mL); Oxycodone, Urine NEGATIVE (< 100 ng/mL); PCP Urine NEGATIVE (< 25 ng/mL); THC Urine PRESUMPTIVE POSITIVE (< 50 ng/mL)
[2025-03-29] MEDS: Phenobarbital 32.4 MG Tablet 97.2 MG PO (20:09)
[2025-03-29] MEDS: Lorazepam 2 MG/ML WCH Syringe IV (20:09)
--- NOTE | 2025-03-29 21:49 | PCM.HP.STD ---
[facility] - General General Date of Admission: 03/29/25 Date of Service: 03/29/25 Chief Complaint: Requesting EtOH Detox. HPI Narrative IRENA TOURE, is a 34 M with a past medical history of essential hypertension; on propranolol, chronic tobacco abuse, depression on escitalopram, history of mitral valve prolapse, history of impetigo, history of vasectomy, history of impingement of the Left shoulder with SLAP tear, history of internal Right knee derangement and chronic EtOH abuse; with patient admitting to drinking 12-18 twelve ounce 'Twisted Teas' daily who presents to [facility] ER requesting EtOH detox. Mr. Toure states his last drink was 5 minutes prior to arrival with no complaints of withdrawal at this time. He states he has never had an alcohol withdrawal seizure in that he has never been in an inpatient detox program. There was no report of fever, chills, visual changes, hallucinations, runny nose, sore throat, ear pain, abdominal pain, nausea, vomiting, diarrhea, constipation, chest pain, shortness of breath, headache or rash. In the ER he was noted to have a ANGIE of 246 mg/dL and he was diagnosed with Acute EtOH Intoxication in the setting of Chronic EtOH Abuse with impending EtOH withdrawal complicated by UDS positive for Cannabinoids and he was then admitted to the general medical floor for ongoing care for status expected to extend beyond 2 midnights. [facility] Medical History Impingement of left shoulder Alcohol use Heartburn Leg cramps Smoker MVP (mitral valve prolapse) Impetigo Superior labrum caebjehu-vy-ijueuoyfz (SLAP) tear of left shoulder Contusion of left shoulder Strain of left rotator cuff capsule Internal derangement of right knee Home Medications ?Medication ?Instructions ?Recorded ?Last Taken ?Type escitalopram oxalate 10 mg tablet 10 mg PO DAILY 03/29/25 Unknown History propranolol 80 mg capsule,24 80 mg PO QHS 03/29/25 Unknown History hr,extended release Allergy/AdvReac Type Severity Reaction Status Date / Time No Known Allergies Allergy Verified 03/29/25 18:31 Family History Mother Heart disease Hypertension Surgical History History of arthroscopy of left shoulder Hx of vasectomy Social History Smoking Status: Current every day smoker tobacco type: cigarettes alcohol intake: current alcohol intake frequency: 0-2 drinks per day ROS ROS Narrative Review of Systems: Constitutional: Patient denies fever or chills. Eyes: Patient denies changes in vision, hallucinations or discharge from eyes. ENT: Patient denies runny nose, sore throat or ear pain. Resp: Patient denies shortness of breath or cough. CV: Patient denies chest pain, palpitations, heart racing or lower extremity edema. GI: Patient denies abdominal pain, nausea, vomiting, diarrhea or constipation. : Patient denies dysuria or hematuria. MSK: Patient denies arthralgias or myalgias. Skin: Patient denies rash, abscess, wounds or jaundice. Psych: Patient denies symptoms of uncontrolled depression or anxiety. Neuro: Patient denies headache, paresthesias or focal neurologic deficits. Allergy: Patient denies lip swelling, tongue swelling or urticaria. Hematology: Patient denies easy bleeding or easy bruisability. Endocrinology: Patient denies polyuria, polydipsia, polyphagia or heat/cold intolerance. 14 point ROS otherwise negative several positives noted above in HPI. Vital Signs Vital Signs Vital Signs: 03/29/25 18:31 03/29/25 20:00 03/29/25 20:14 Temperature 98.1 F 98.5 F Temperature Source Oral Oral Pulse Rate 116 H 91 95 Respiratory Rate 19 H 15 18 Blood Pressure 165/106 H 144/79 H 134/103 H Blood Pressure Mean 125 100 113 Blood Pressure Source Monitor Pulse Ox 98 97 97 Oxygen Delivery Method Room Air Room Air Room Air 03/29/25 21:00 03/29/25 21:47 Temperature 97.5 F L Temperature Source Pulse Rate 85 Respiratory Rate 18 Blood Pressure 119/55 L 115/62 Blood Pressure Mean 76 79 Blood Pressure Source Pulse Ox 95 96 Oxygen Delivery Method Weight Weight: 163 lb 3.2 oz Body Mass Index (BMI) 23.4 Physical Exam Const alert, oriented x3, no apparent distress and average body habitus Constitutional Narrative: Patient is intoxicated. General Appearance: cooperative HEENT normocephalic, head/scalp atraumatic, hearing grossly normal bilaterally and moist oral mucous membranes Eyes PERRL and EOMs intact bilaterally Neck no lymphadenopathy, supple and no JVD Resp normal respiratory effort, no retractions, no use of accessory muscles and clear to auscultation bilaterally Cardio regular rate and regular rhythm GI normal to inspection, nondistended, normoactive bowel sounds, soft to palpation, non-tender and non-distended Extremity normal to inspection, full ROM and no clubbing, cyanosis or edema Skin Skin Narrative: Patient is evidence of rash, abscess, wounds or jaundice. Neuro oriented x3, CN's II-XII intact bilaterally, moves all extremities and no focal motor deficits Neuro Narrative: Patient is intoxicated. Sensorium / Orientation: awake, alert, oriented to person, oriented to place and oriented to time Speech: speech normal Psych affect normal Results Medical Records Data Attestation: I reviewed the patient's medical records Lab / Micro Data Attestation: I reviewed the patient's lab results. 03/29/25 18:53 03/29/25 18:53 Labs: Laboratory Results - last 24 hr 03/29/25 18:53: WBC 11.3 H, RBC 5.04, Hgb 16.5, Hct 46.4, MCV 92.1, MCH 32.7 H, MCHC 35.6, RDW Std Deviation 41.3, RDW Coeff of Gladys 12.3, Plt Count 277, MPV 10.2, Immature Gran % (Auto) 0.400, Neut % (Auto) 63.7, Lymph % (Auto) 23.2, [place] % (Auto) 9.9, Eos % (Auto) 1.8, Baso % (Auto) 1.0, Absolute Neuts (auto) 7.2, Absolute Lymphs (auto) 2.62, Nucleated RBC % 0, Sodium 136, Potassium 3.3, Chloride 98, Carbon Dioxide 19.5 L, Anion Gap 18 H, BUN 15, Creatinine 1.03, Estim Creat Clear Calc 104.34, Est GFR (MDRD) Non-Af 98, BUN/Creatinine Ratio 14.3, Glucose 107 H, Calcium 9.5, Total Bilirubin 0.63, AST 30, ALT 31, Alkaline Phosphatase 56, Total Protein 7.5, Albumin 4.9, Globulin 2.6, Albumin/Globulin Ratio 1.9, Urine Opiates Screen NEGATIVE, U Buprenorphine Qual NEGATIVE, Ur Oxycodone Screen NEGATIVE, Urine Methadone Screen NEGATIVE, Urine Fentanyl Screen NEGATIVE, Ur Barbiturates Screen NEGATIVE, Ur Phencyclidine Scrn NEGATIVE, Ur Amphetamines Screen NEGATIVE, U Benzodiazepines Scrn NEGATIVE, Urine Cocaine Screen NEGATIVE, U Cannabinoids Screen PRESUMPTIVE POSITIVE, Ethyl Alcohol 246.0 H Assessment & Plan Assessment/Plan (1) Acute alcohol intoxication in patient with alcoholism with blood alcohol level 0.08 to 0.29: QUALIFIERS: Complication of substance-induced condition: uncomplicated Qualified Code(s): F10.220 - Alcohol dependence with intoxication, uncomplicated (2) Tobacco abuse: (3) Cannabis abuse: PLAN: Plan 1. Acute EtOH Intoxication with a ANGIE of 246 mg/dL present on admission in the setting of Chronic EtOH Abuse with impending EtOH withdrawal - Admit to general medical floor for treatment under the EtOH detoxification protocol primarily consisting of phenobarbital taper. EtOH cessation will be strongly encouraged. Give ibuprofen as needed pain or fever. Finally, we will consult case management see this patient on rounds in a.m. for referral to RAMP program without appreciated advance. 2. Tobacco Abuse complicating #1 - Tobacco Cessation will be strongly encouraged with Nicotine patch offered to control cravings. 3. Cannabis Abuse compounding #1 & #2 - Cannabis Cessation will be strongly encouraged. 4. Essential hypertension; on propranolol - Continue current regimen. 5. Depression on escitalopram - Resume present treatment. 6. History of mitral valve prolapse - Noted. 7. History of impetigo - Noted. 8. History of vasectomy - Noted for the sake of completeness. 9. History of impingement of the Left shoulder with SLAP tear - Noted. 10. History of internal Right knee derangement - Noted. 11. DVT prophylaxis - Heparin 5,000U sq BID. Total time: Approximately (but not less than) 55 minutes. Charges/Coding Visit Charges Inpatient E&M: 07423 Init Hosp L2
[2025-03-29 22:55] LABS: Bacteria 0 SEEN /hpf (None Seen); Mucous, Urine 0 SEEN /hpf (<or=2+); Red Blood Cells-Urine 0 SEEN /hpf (0-5); Squamous Epithelial Cells - UA 0 SEEN /hpf (0-5); White Blood Cells 0 SEEN /hpf (0-5)
[2025-03-29 22:55] LABS: International Normalized Ratio 0.9; Prothrombin Time (Protime)PT. 12.7 SECONDS (11.7-14.9)
[2025-03-29 23:07] LABS: Magnesium 2.3 mg/dL (1.5-2.2)
[2025-03-29 23:08] LABS: Color, Urine Straw (Yellow); Glucose, Dipstick Normal (Normal); Ketone-Dipstick Negative (Negative); Leukocyte Esterase-Dipstick Negative /ul (Negative); Nitrite-Dipstick Negative (Negative); Occult Blood-Urine Negative /ul (Negative); Protein-Dipstick 15 mg/dl (Negative); Specific Gravity, Urine 1.005 (1.002-1.030); Urine Bilirubin Dipstick Negative (Negative); Urine Clarity Clear (Clear); Urine Urobilinogen Normal (Normal); Urine pH 6.5 (5.0 - 8.0)
[2025-03-29 23:23] LABS: FOLATES,SERUM (FOLIC ACID) < 2.00 ng/mL (4.60-34.80)
[2025-03-29] MEDS: Ondansetron 8 MG Tablet PO (23:39)
[2025-03-29] MEDS: Phenobarbital 32.4 MG Tablet 64.8 MG PO (23:39)
[2025-03-29] MEDS: Lactated Ringers 1,000 ML 150 ML IV (23:39)
[2025-03-29] MEDS: 0.9% Saline Lock 10 ML Syringe IV (23:44)
[2025-03-29 23:59] LABS: Vitamin B12 336 pg/mL (180-914)
[2025-03-30 03:12] VITALS: BP 111/68; PULSE 91; RESP 18; TEMP 36.5; O2SAT 97
[2025-03-30] MEDS: Phenobarbital 32.4 MG Tablet 64.8 MG PO ×6 (03:16→22:53)
[2025-03-30 05:41] VITALS: BMI 21.6
[2025-03-30] MEDS: Lactated Ringers 1,000 ML 150 ML IV (06:28)
[2025-03-30 06:29] VITALS: BP 126/71; PULSE 82; RESP 14; TEMP 36.7; O2SAT 96
[2025-03-30 07:05] LABS: Absolute Neutrophil Count 2.3 X10^3/uL (2.0-7.7); Basophil# 0.08 X10^3/uL; Basophil% 1.6 % (0-1); Eosinophil# 0.24 X10^3/uL; Eosinophils% 4.7 % (0-5); Hematocrit 43.4 % (40-54); Hemoglobin 15.4 g/dL (13.0-16.5); Lymphocyte % 40.7 % (19-41); Mean Corp Hgb Conc 35.5 g/dL (32-36); Mean Corpuscular Hgb 32.5 pg (27.0-32.0); Mean Corpuscular Volume 91.6 fL (80-94); Mean Platelet Vol. 10.8 fl (6.2-12.0); Monocyte# 0.49 X10^3/uL; Monocyte% 9.5 % (0-10); NRBC Flagged by Analyzer 0 % (0-5); Neutrophil # 2.25 X10^3/uL (2.7-7.7); Neutrophil % 43.5 % (47-70); Platelet Count 247 K/mm3 (150-450); RBC Distribution Width CV 12.2 % (11.6-14.6); RBC Distribution Width SD 41.3 fl (35.1-43.9); Red Blood Count 4.74 M/mm3 (4.6-6.2); White Blood Count 5.2 K/mm3 (4.4-11.0)
[2025-03-30 07:45] LABS: Phosphorus 3.7 mg/dL (2.7-4.5)
[2025-03-30 07:49] LABS: ALB/GLOB Ratio 1.9 RATIO (0.9-2.4); AST(SGOT) 22 U/L (<=37); Alanine Aminotransfer ALT/SGPT 23 U/L (<=46); Alkaline Phosphatase 41 U/L (40-129); Anion Gap 13 (5-15); BUN 11 mg/dL (4-19); BUN/Creat Ratio 11.5 RATIO (10-20); Carbon Dioxide 23.8 mmol/L (21.0-32.0); Chloride 105 mmol/L (98-108); Creatinine, Serum 0.91 mg/dL (0.70-1.20); EST Glomerular Filtration Rate 113 (>60); Estimated Creatinine Clearance 110.66 ml/min (50-250); Globulin 2.1 g/dL (2.2-4.2); Glucose 104 mg/dL (70-99); Potassium 4.5 mmol/L (3.3-5.1); Protein, Total 6.1 g/dL (5.9-8.4); Sodium Level 142 mmol/L (133-145)
[2025-03-30 11:35] VITALS: BP 157/78; PULSE 88; RESP 16; TEMP 36.9; O2SAT 98
[2025-03-30] MEDS: Folic Acid 1 MG Tablet PO (11:36)
[2025-03-30] MEDS: Escitalopram Oxalate 10 MG Tablet PO (11:36)
[2025-03-30] MEDS: Thiamine Hydrochloride 100 MG Tablet PO (11:36)
[2025-03-30] MEDS: Dicyclomine 10 MG Capsule 20 MG PO ×2 (12:09→22:53)
--- NOTE | 2025-03-30 12:28 | ADDICTION ---
Met with pt to complete RAMP assessments. Pt was agreeable to tx recommendations. He was assessed for the Vivitrol shot post discharge and meets criteria. [facility], counseling and MAT.
--- NOTE | 2025-03-30 14:37 | PN.HOSP_ITS ---
Reason for Visit Reason for Visit: Diagnoses Alcohol dependence with intoxication, uncomplicated (03/29/25) Cannabis abuse, uncomplicated (03/29/25) Tobacco use (03/29/25) Objective Data Objective Data Vital Signs: Vital Signs Temp Pulse Resp BP Pulse Ox O2 Del Method 98.5 F 88 16 157/78 H 98 Room Air 03/30/25 11:35 03/30/25 11:35 03/30/25 11:35 03/30/25 11:35 03/30/25 11:35 03/30/25 11:35 Oxygen Delivery Method Room Air Weight: 150 lb 12.739 oz Body Mass Index (BMI) 21.6 Intake & Output: Intake and Output for Last 24 Hours 03/28/25 03/29/25 03/30/25 23:59 23:59 23:59 Intake Total 2700 / 2700 Balance 2700 / 2700 Lab / Micro Data 03/30/25 06:37 03/30/25 06:37 Labs: Laboratory Results - last 24 hr 03/29/25 18:53: WBC 11.3 H, RBC 5.04, Hgb 16.5, Hct 46.4, MCV 92.1, MCH 32.7 H, MCHC 35.6, RDW Std Deviation 41.3, RDW Coeff of Gladys 12.3, Plt Count 277, MPV 10.2, Immature Gran % (Auto) 0.400, Neut % (Auto) 63.7, Lymph % (Auto) 23.2, [place] % (Auto) 9.9, Eos % (Auto) 1.8, Baso % (Auto) 1.0, Absolute Neuts (auto) 7.2, Absolute Lymphs (auto) 2.62, Nucleated RBC % 0, Sodium 136, Potassium 3.3, Chloride 98, Carbon Dioxide 19.5 L, Anion Gap 18 H, BUN 15, Creatinine 1.03, Estim Creat Clear Calc 104.34, Est GFR (MDRD) Non-Af 98, BUN/Creatinine Ratio 14.3, Glucose 107 H, Calcium 9.5, Total Bilirubin 0.63, AST 30, ALT 31, Alkaline Phosphatase 56, Total Protein 7.5, Albumin 4.9, Globulin 2.6, Albumin/Globulin Ratio 1.9, Urine Color Straw, Urine Clarity Clear, Urine pH 6.5, Ur Specific [place] 1.005, Urine Protein 15 H, Urine Glucose (UA) Normal, Urine Ketones Negative, Urine Occult Blood Negative, Urine Nitrite Negative, Urine Bilirubin Negative, Urine Urobilinogen Normal, Ur Leukocyte Esterase Negative, Urine RBC 0 SEEN, Urine WBC 0 SEEN, Ur Squamous Epith Cells 0 SEEN, Urine Bacteria 0 SEEN, Urine Mucus 0 SEEN Urine Opiates Screen NEGATIVE, U Buprenorphine Qual NEGATIVE, Ur Oxycodone Screen NEGATIVE, Urine Methadone Screen NEGATIVE, Urine Fentanyl Screen NEGATIVE, Ur Barbiturates Screen NEGATIVE, Ur Phencyclidine Scrn NEGATIVE, Ur Amphetamines Screen NEGATIVE, U Benzodiazepines Scrn NEGATIVE, Urine Cocaine Screen NEGATIVE, U Cannabinoids Screen PRESUMPTIVE POSITIVE, Ethyl Alcohol 246.0 H 03/29/25 22:34: PT 12.7, INR 0.9, Magnesium 2.3 H, Serum Folate < 2.00 L 03/29/25 23:24: Vitamin B12 336 03/30/25 06:37: WBC 5.2, RBC 4.74, Hgb 15.4, Hct 43.4, MCV 91.6, MCH 32.5 H, MCHC 35.5, RDW Std Deviation 41.3, RDW Coeff of Gladys 12.2, Plt Count 247, MPV 10.8, Immature Gran % (Auto) 0.000, Neut % (Auto) 43.5 L, Lymph % (Auto) 40.7, [place] % (Auto) 9.5, Eos % (Auto) 4.7, Baso % (Auto) 1.6 H, Absolute Neuts (auto) 2.3, Absolute Lymphs (auto) 2.10, Nucleated RBC % 0, Sodium 142, Potassium 4.5, Chloride 105, Carbon Dioxide 23.8, Anion Gap 13, BUN 11, Creatinine 0.91, Estim Creat Clear Calc 110.66, Est GFR (MDRD) Non-Af 113, BUN/Creatinine Ratio 11.5, Glucose 104 H, Calcium 9.0, Phosphorus 3.7, Total Bilirubin 0.30, AST 22, ALT 23, Alkaline Phosphatase 41, Total Protein 6.1, Albumin 4.0, Globulin 2.1 L, Albumin/Globulin Ratio 1.9, TSH 1.530 Physical Exam Narrative Seen and examined Patient has a history of chronic alcohol use. Was drinking twisted tea about 1 pack. He also smokes cigarettes 1/2 pack/day and smokes marijuana. Denies other substance use. Denies IV needle use in the past. Physical exam: General: Alert, Oriented x3, Cooperative HEENT: Atraumatic, PERRLA, EOMI, Normocephalic. Oral: No Gingival or Mucosal Lesions/ Ulcerations Neck: Supple, No JVD, Negative Carotid Bruits Chest wall/Lungs: Air entry diminished in bilateral lung bases. No crepitation/rhonchi Cardiovascular: Regular rate and rhythm, Normal S1,S2, No M/G/R Abdomen: Bowel Sounds Present, Soft, Non Tender, Non-Distended : No dysuria. No renal angle tenderness. No suprapubic tenderness. Extremities: No edema, Capillary Refill Less than 3 Seconds Skin: No rashes, No breakdown. Musculoskeletal: No Tenderness to Palpation of Joints or Extremities Neurological: Cranial nerves II-XII grossly intact, DTR 2+/4. No acute focal neurological deficit. Psych/Mental Status: Normal Affect, Appropriate. Assessment & Plan Assessment/Plan (1) Acute alcohol intoxication in patient with alcoholism with blood alcohol level 0.08 to 0.29: QUALIFIERS: Complication of substance-induced condition: u ncomplicated Qualified Code(s): F10.220 - Alcohol dependence with intoxication, uncomplicated (2) Tobacco abuse: (3) Cannabis abuse: PLAN: Plan 1. Acute EtOH Intoxication with a ANGIE of 246 mg/dL present on admission in the setting of Chronic EtOH Abuse with impending EtOH withdrawal - Admit to general medical floor for treatment under the EtOH detoxification protocol primarily consisting of phenobarbital taper. EtOH cessation will be strongly encouraged. Give ibuprofen as needed pain or fever. Finally, we will consult case management see this patient on rounds in a.m. for referral to RAMP program without appreciated advance. 2. Tobacco Abuse complicating #1 - Tobacco Cessation will be strongly encouraged with Nicotine patch offered to control cravings. 3. Cannabis Abuse compounding #1 & #2 - Cannabis Cessation will be strongly encouraged. 4. Essential hypertension; on propranolol - Continue current regimen. 5. Depression on escitalopram - Resume present treatment. 6. History of mitral valve prolapse - Noted. 7. History of impetigo - Noted. 8. History of vasectomy - Noted for the sake of completeness. 9. History of impingement of the Left shoulder with SLAP tear - Noted. 10. History of internal Right knee derangement - Noted. 11. DVT prophylaxis - Heparin 5,000U sq BID. Total time: Approximately (but not less than) 55 minutes.
[2025-03-30 16:20] VITALS: BP 138/78; PULSE 78
[2025-03-30 18:50] VITALS: BP 134/82; PULSE 72
[2025-03-30 22:45] VITALS: BP 130/86; PULSE 58; RESP 14; TEMP 36.6; O2SAT 99
[2025-03-30] MEDS: Propranolol LA 80 MG Capsule PO (22:52)
[2025-03-30] MEDS: Ondansetron 8 MG Tablet PO (22:53)
[2025-03-31 03:22] VITALS: BP 113/69; PULSE 55; RESP 12; TEMP 36.7; O2SAT 99
[2025-03-31] MEDS: Phenobarbital 32.4 MG Tablet 64.8 MG PO ×6 (03:24→23:48)
[2025-03-31 06:00] VITALS: BMI 23.8
[2025-03-31] MEDS: Folic Acid 1 MG Tablet PO (07:26)
[2025-03-31] MEDS: Thiamine Hydrochloride 100 MG Tablet PO (07:27)
[2025-03-31] MEDS: Escitalopram Oxalate 10 MG Tablet PO (07:27)
[2025-03-31 08:20] LABS: Phosphorus 4.6 mg/dL (2.7-4.5)
[2025-03-31 08:22] LABS: AST(SGOT) 21 U/L (<=37); Alanine Aminotransfer ALT/SGPT 20 U/L (<=46); Albumin, Serum 3.9 g/dL (3.5-5.0); Alkaline Phosphatase 35 U/L (40-129); Anion Gap 11 (5-15); BUN 14 mg/dL (4-19); BUN/Creat Ratio 13.7 RATIO (10-20); Carbon Dioxide 24.6 mmol/L (21.0-32.0); Chloride 102 mmol/L (98-108); Creatinine, Serum 1.04 mg/dL (0.70-1.20); EST Glomerular Filtration Rate 97 (>60); Estimated Creatinine Clearance 103.34 ml/min (50-250); Glucose 104 mg/dL (70-99); Protein, Total 5.8 g/dL (5.9-8.4); Sodium Level 137 mmol/L (133-145)
[2025-03-31 08:36] VITALS: BP 117/68; PULSE 65; RESP 16; TEMP 36.9; O2SAT 97
[2025-03-31 11:13] VITALS: BP 121/66; PULSE 71; RESP 16; TEMP 36.9; O2SAT 100
--- NOTE | 2025-03-31 11:59 | PCM.PN.HOSP ---
Reason for Visit Reason for Visit: Diagnoses Alcohol dependence with intoxication, uncomplicated (03/29/25) Cannabis abuse, uncomplicated (03/29/25) Tobacco use (03/29/25) Objective Data Objective Data Vital Signs: Vital Signs Temp Pulse Resp BP Pulse Ox O2 Del Method 98.4 F 71 16 121/66 H 100 Room Air 03/31/25 11:13 03/31/25 11:13 03/31/25 11:13 03/31/25 11:13 03/31/25 11:13 03/31/25 11:13 Oxygen Delivery Method Room Air Weight: 166 lb 10.711 oz Body Mass Index (BMI) 23.8 Intake & Output: Intake and Output for Last 24 Hours 03/29/25 03/30/25 03/31/25 23:59 23:59 23:59 Intake Total 3100 / 3800 1100 / 1100 Balance 3100 / 3800 1100 / 1100 Lab / Micro Data 03/30/25 06:37 03/31/25 06:38 Labs: Laboratory Results - last 24 hr 03/31/25 06:38: Sodium 137, Potassium 4.0, Chloride 102, Carbon Dioxide 24.6, Anion Gap 11, BUN 14, Creatinine 1.04, Estim Creat Clear Calc 103.34, Est GFR (MDRD) Non-Af 97, BUN/Creatinine Ratio 13.7, Glucose 104 H, Calcium 9.0, Phosphorus 4.6 H, Total Bilirubin 0.80, AST 21, ALT 20, Alkaline Phosphatase 35 L, Total Protein 5.8 L, Albumin 3.9, Globulin 2.0 L, Albumin/Globulin Ratio 2.0 Physical Exam Narrative Seen and examined Withdrawal symptoms are better. Tremors have almost resolved. Has good sleep. States he is hands were moving spontaneously during sleep Patient has a history of chronic alcohol use. Was drinking twisted tea about 1 pack. He also smokes cigarettes 1.5 pack/day and smokes marijuana. Denies other substance use. Denies IV needle use in the past. Physical exam: General: Awake, oriented x3, Cooperative. Flushed face. HEENT: Atraumatic, PERRLA, EOMI, Normocephalic. Oral: No Gingival or Mucosal Lesions/ Ulcerations Neck: Supple, No JVD, Negative Carotid Bruits Chest wall/Lungs: Air entry diminished in bilateral lung bases. No crepitation/rhonchi Cardiovascular: Regular rate and rhythm, Normal S1,S2, No M/G/R Abdomen: Bowel Sounds Present, Soft, Non Tender, Non-Distended : No dysuria. No renal angle tenderness. No suprapubic tenderness. Extremities: No edema, Capillary Refill Less than 3 Seconds Skin: No rashes, No breakdown. Musculoskeletal: No Tenderness to Palpation of Joints or Extremities Neurological: Cranial nerves II-XII grossly intact, DTR 2+/4. No acute focal neurological deficit. Psych/Mental Status: Flat affect Assessment & Plan Assessment/Plan (1) Acute alcohol intoxication in patient with alcoholism with blood alcohol level 0.08 to 0.29: QUALIFIERS: Complication of substance-induced condition: uncomplicated Qualified Code(s): F10.220 - Alcohol dependence with intoxication, uncomplicated (2) Tobacco abuse: (3) Cannabis abuse: PLAN: Plan 34-year-old gentleman being admitted for acute alcohol withdrawal syndrome. 1. Acute alcohol withdrawal syndrome with history of chronic alcohol use disorder, dependence, tolerance: Patient came to ED in intoxicated state, blood alcohol level 246 mg/dL. Currently patient is withdrawing with tremors, flushed face goosebumps hot and cold feeling and anxiety. Patient is being admitted to MedSurg floor. Patient on phenobarbital based order set along with other adjunctive medications gabapentin, Bentyl, Vistaril, clonidine, Klonopin as needed for alcohol withdrawal symptom control. Patient is on thiamine and folate acid. CIWA monitor. client support manager 180 consulted. 03/31 continue above treatment. Patient is doing better. Plan for discharge tomorrow with outpatient follow-up. Patient found good candidate for Vivitrol therefore ordered. Liver chemistry shows normal ALT AST and low alkaline phosphatase. Total bilirubin normal. 2. Chronically smoking, 1.5 pack/day: Nicotine patch ordered. Smoking counseling to quit done 3. Chronic cannabis use disorder: Advised to quit 4. Essential hypertension; on propranolol - Continue current regimen. 5. Depression on escitalopram - Resume present treatment. DVT prophylaxis - Heparin 5,000U sq BID. Laboratory Results 03/31/25 06:38: Sodium 137, Potassium 4.0, Chloride 102, Carbon Dioxide 24.6, Anion Gap 11, BUN 14, Creatinine 1.04, Estim Creat Clear Calc 103.34, Est GFR (MDRD) Non-Af 97, BUN/Creatinine Ratio 13.7, Glucose 104 H, Calcium 9.0, Phosphorus 4.6 H, Total Bilirubin 0.80, AST 21, ALT 20, Alkaline Phosphatase 35 L, Total Protein 5.8 L, Albumin 3.9, Globulin 2.0 L, Albumin/Globulin Ratio 2.0 Charges/Coding Visit Charges Inpatient E&M: 10085 Subs Hosp L2
--- NOTE | 2025-03-31 13:10 | CHAPLAIN ---
Type of Pastoral Visit _x__ Initial Visit ___ Follow-up Visit ___ On-call Visit ___ General Patient Visit ___ Spiritual Assessment ___ Family Conference ___ Bereavement ___ Rapid Response ___ Code Blue ___ Other (describe below) Pastoral Care Referral From _x__ Patient ___ Family ___ Nurse ___ Physician ___ Mica Patcher ___ Senior Scrum Master ___ Other (describe below) Sacrament/Intervention _x__ Active listening ___ Anointing ___ Muslim ___ Bereavement ___ Communion _x__ Kassie exploration ___ _x__ Life review _x__ Prayer ___ Reconciliation ___ Sacrament of Sick _x__ Supportive presence ___ Wedding ___ Other (describe below) Pastoral Comments door to room was open for RAMP patient and he welcomed this rock contractor to come in and talk with him saying, I'll take anything to stop the boredom; pt is open about his struggle with alcohol and how I don't want to be like my alcoholic father, even though he is a great person; pt started drinking heavily and without restraint after his divorce and there was no one to stop me; pt is very concerned about having a relationship with his daughters of whom he has shared custody; pt states that he has supportive family and friends and that one friend is a committed Alevism that wants him to be in rastafarian with him; this however is the rastafarian where he and former attended and patient says he is no longer comfortable going there; pt seeks spiritual direction and answers about his kassie and the journey of his life; pt welcomes prayer and emotional support; pt has a plan with follow up at [facility], AA, and family
[2025-03-31 15:20] VITALS: BP 121/71; PULSE 55; RESP 16; TEMP 36.9; O2SAT 100
[2025-03-31 21:42] VITALS: BP 148/73; PULSE 65; RESP 16; TEMP 36.7; O2SAT 100
[2025-03-31] MEDS: MELATONIN 3 MG TABLET PO (21:45)
[2025-03-31] MEDS: Propranolol LA 80 MG Capsule PO (21:45)
[2025-03-31 23:46] VITALS: BP 137/72; PULSE 66; RESP 16; TEMP 37.1; O2SAT 96
[2025-04-01 03:49] VITALS: BP 124/63; PULSE 74; RESP 16; TEMP 36.9; O2SAT 96
[2025-04-01] MEDS: Phenobarbital 32.4 MG Tablet 64.8 MG PO ×2 (03:51→07:37)
[2025-04-01 06:00] VITALS: BMI 23.8
[2025-04-01 07:08] LABS: ALB/GLOB Ratio 1.9 RATIO (0.9-2.4); AST(SGOT) 18 U/L (<=37); Alanine Aminotransfer ALT/SGPT 18 U/L (<=46); Albumin, Serum 3.9 g/dL (3.5-5.0); Alkaline Phosphatase 36 U/L (40-129); Anion Gap 10 (5-15); BUN 14 mg/dL (4-19); BUN/Creat Ratio 13.6 RATIO (10-20); Calcium,Total 8.8 mg/dL (7.6-11.0); Carbon Dioxide 26.7 mmol/L (21.0-32.0); Chloride 103 mmol/L (98-108); EST Glomerular Filtration Rate 102 (>60); Estimated Creatinine Clearance 107.47 ml/min (50-250); Glucose 111 mg/dL (70-99); Protein, Total 5.9 g/dL (5.9-8.4); Sodium Level 139 mmol/L (133-145); Total Bilirubin 0.41 mg/dL (0.00-1.30)
[2025-04-01] MEDS: Escitalopram Oxalate 10 MG Tablet PO (07:38)
[2025-04-01] MEDS: Thiamine Hydrochloride 100 MG Tablet PO (07:38)
[2025-04-01] MEDS: Folic Acid 1 MG Tablet PO (07:38)
[2025-04-01 09:03] VITALS: BP 111/64; PULSE 54; RESP 16; TEMP 36.3; O2SAT 98
--- NOTE | 2025-04-01 10:28 | DCINST_ITS ---
Discharge Instructions Diet Discharge Diet: No restrictions DC O2, CPAP, BIPAP needs Home O2 Discharge instructions: No Dressing / Incision Discharge Activity: Return to Normal Activity Weight Bearing Status: Weight bearing as tolerated Dressing / Incision Call your doctor if you observe: Fever of 101 or Higher, Coldness, Increased Pain, Numbness or Tingling, Change in Color, Inability to urinate, Inability to have a bowel movement, Shortness of breath, Dizziness, Fainting spells, Swelling in the ankles, Chest pain, Prolonged hiccupping, Increased palpitations (irregular heartbeat) and Calf discomfort Follow Up Care When: IN 2 WEEKS Test Results: Test results from this visit will be discussed in further detail at your follow- up appointment, if applicable. Discharge Plan Admission Admit Date/Time: 03/29/25 22:06 Attending Provider: Abiodun Vazquez Primary Care Provider: Noah Amador Consulting Providers: Nilson Ward Instructions Additional Instructions / Restrictions: Follow-up in [facility] outpatient for alcohol rehab. Patient is going to get Vivitrol IM injection. Discharge Orders/Prescriptions Prescriptions: New nicotine 14 mg/24 hr Patch 24 Hour 14 mg transdermal DAILY Qty: 28 0RF thiamine HCl (vitamin B1) 100 mg Tablet 100 mg PO DAILYCM 30 Days Qty: 30 3RF folic acid 1 mg Tablet 1 mg PO DAILY@0800 30 Days Qty: 30 3RF Continued escitalopram oxalate 10 mg tablet 10 mg PO DAILY propranolol 80 mg capsule,extended release 24 hr 80 mg PO QHS Referrals / Follow Up: Noah Amador MD [Primary Care Provider] - Within 2 Weeks Disposition Disposition (needs filled in before D/C Order can be placed): Home, Self Care
--- NOTE | 2025-04-01 10:30 | PCM.DC.SUM ---
Providers Date of Admission: 03/29/25 Date of Discharge: 04/01/25 Primary Care Physician: Dr. Noah Amador MD Reason For Visit: ALCOHOL DETOX Diagnosis Discharge Diagnosis (1) Acute alcohol intoxication in patient with alcoholism with blood alcohol level 0.08 to 0.29: Status: Acute Code(s): F10.229 - Alcohol dependence with intoxication, unspecified Qualifiers: Complication of substance-induced condition: uncomplicated Qualified Code(s): F10.220 - Alcohol dependence with intoxication, uncomplicated (2) Tobacco abuse: Status: Acute Code(s): Z72.0 - Tobacco use (3) Cannabis abuse: Status: Acute Code(s): F12.10 - Cannabis abuse, uncomplicated Plan 34-year-old gentleman being admitted for acute alcohol withdrawal syndrome. 1. Acute alcohol withdrawal syndrome with history of chronic alcohol use disorder, dependence, tolerance: Patient came to ED in intoxicated state, blood alcohol level 246 mg/dL. Currently patient is withdrawing with tremors, flushed face goosebumps hot and cold feeling and anxiety. Patient is being admitted to [facility] floor. Patient on phenobarbital based order set along with other adjunctive medications gabapentin, Bentyl, Vistaril, clonidine, Klonopin as needed for alcohol withdrawal symptom control. Patient is on thiamine and folate acid. [facility] monitor. manager credit risk 180 consulted. 03/31: Continue above treatment. Patient is doing better. Plan for discharge tomorrow with outpatient follow-up. Patient found good candidate for Vivitrol therefore ordered. Liver chemistry shows normal ALT AST and low alkaline phosphatase. Total bilirubin normal. 04/01: Patient feeling much better. Alcohol withdrawal symptoms have resolved. Plan for Vivitrol injection at 10 AM and then observed for some time and discharged home. Follow-up with outpatient alcohol rehab 180 program. Prescription given for nicotine patch, thiamine and folic acid 2. Chronically smoking, 1.5 pack/day: Nicotine patch ordered. Smoking counseling to quit done 3. Chronic cannabis use disorder: Advised to quit 4. Essential hypertension; on propranolol - Continue current regimen. 5. Depression on escitalopram - Resume present treatment. DVT prophylaxis - Heparin 5,000U sq BID. Discharge medication reconciliation done. Discharge follow-up instructions completed. Discharge process discussed with the patient and all questions were answered to patient's satisfaction. Follow with PCP in 1 to 2 weeks Total time spent, exact 35 minutes on discharge meds reconciliation, examination, coordination of care with nurses and ancillary staff, review of imaging and blood test and discussion with the patient on follow-up instructions. Laboratory Results 03/31/25 06:38: Sodium 137, Potassium 4.0, Chloride 102, Carbon Dioxide 24.6, Anion Gap 11, BUN 14, Creatinine 1.04, Estim Creat Clear Calc 103.34, Est GFR (MDRD) Non-Af 97, BUN/Creatinine Ratio 13.7, Glucose 104 H, Calcium 9.0, Phosphorus 4.6 H, Total Bilirubin 0.80, AST 21, ALT 20, Alkaline Phosphatase 35 L, Total Protein 5.8 L, Albumin 3.9, Globulin 2.0 L, Albumin/Globulin Ratio 2.0 Medications at Discharge Home Medications escitalopram oxalate 10 mg tablet 10 mg PO DAILY 03/29/25 propranolol 80 mg capsule,24 hr,extended release 80 mg PO QHS 03/29/25 folic acid 1 mg tablet 1 mg PO DAILY@0800 30 days #30 tabs 04/01/25 nicotine 14 mg/24 hr daily transdermal patch 14 mg transdermal DAILY #28 ea 04/01/25 thiamine HCl (vitamin B1) 100 mg tablet 100 mg PO DAILYCM 30 days #30 tabs 04/01/25 Physical Exam Narrative Seen and examined No acute withdrawal symptoms. Patient is doing well Physical exam: General: Awake, oriented x3, Cooperative. HEENT: Atraumatic, PERRLA, EOMI, Normocephalic. Oral: No Gingival or Mucosal Lesions/ Ulcerations Neck: Supple, No JVD, Negative Carotid Bruits Chest wall/Lungs: Air entry diminished in bilateral lung bases. No crepitation/rhonchi Cardiovascular: Regular rate and rhythm, Normal S1,S2, No M/G/R Abdomen: Bowel Sounds Present, Soft, Non Tender, Non-Distended : No dysuria. No renal angle tenderness. No suprapubic tenderness. Extremities: No edema, Capillary Refill Less than 3 Seconds Skin: No rashes, No breakdown. Musculoskeletal: No Tenderness to Palpation of Joints or Extremities Neurological: Cranial nerves II-XII grossly intact, DTR 2+/4. No acute focal neurological deficit. Psych/Mental Status: Flat affect Weight / BMI Weight Weight: 166 lb 10.711 oz Body Mass Index (BMI) 23.8 ABG / Lab / Microbiology Data 03/30/25 06:37 04/01/25 06:20 Laboratory: Laboratory Results - last 24 hr 04/01/25 06:20: Sodium 139, Potassium 4.0, Chloride 103, Carbon Dioxide 26.7, Anion Gap 10, BUN 14, Creatinine 1.00, Estim Creat Clear Calc 107.47, Est GFR (MDRD) Non-Af 102, BUN/Creatinine Ratio 13.6, Glucose 111 H, Calcium 8.8, Total Bilirubin 0.41, AST 18, ALT 18, Alkaline Phosphatase 36 L, Total Protein 5.9, Albumin 3.9, Globulin 2.0 L, Albumin/Globulin Ratio 1.9 D/C Instructions Discharge Diet: No restrictions Weight Bearing Status: Weight bearing as tolerated Call your doctor if you observe: Fever of 101 or Higher, Coldness, Increased Pain, Numbness or Tingling, Change in Color, Inability to urinate, Inability to have a bowel movement, Shortness of breath, Dizziness, Fainting spells, Swelling in the ankles, Chest pain, Prolonged hiccupping, Increased palpitations (irregular heartbeat) and Calf discomfort DC O2, CPAP, BIPAP Needs Home O2 Discharge instructions: No When: IN 2 WEEKS Meaningful Use Info Meaningful Use Meaningful Use Diagnoses (Choose all that apply): None applicable Ischemic Stroke Statin Dosing Therapy Reference: STATIN DOSE THERAPY REFERENCE: * Patients > 75 years receive moderate or high dose statin therapy. * Patients 75 years or YOUNGER should receive HIGH intensity statin dose unless contraindicated. You will be required to document reason for non-treatment if statin daily dose does not meet guidelines. HIGH DOSE STATIN THERAPY DAILY Atorvastatin > than or = to 40 mg Rosuvastatin > than or = to 20 mg Amlodipine + Atorvastatin > than or = to 2.5/40 mg Ezetimibe + Simvastatin 10/80 mg Simvastatin 80mg Discharge Plan Admission Admit Date/Time: 03/29/25 22:06 Attending Provider: Abiodun Vazquez Primary Care Provider: Noah Amador Consulting Providers: Nilson Ward Instructions Additional Instructions / Restrictions: Follow-up in 180 outpatient for alcohol rehab. Patient is going to get Vivitrol IM injection. Discharge Orders/Prescriptions Prescriptions: New nicotine 14 mg/24 hr Patch 24 Hour 14 mg transdermal DAILY Qty: 28 0RF thiamine HCl (vitamin B1) 100 mg Tablet 100 mg PO DAILYCM 30 Days Qty: 30 3RF folic acid 1 mg Tablet 1 mg PO DAILY@0800 30 Days Qty: 30 3RF Continued escitalopram oxalate 10 mg tablet 10 mg PO DAILY propranolol 80 mg capsule,extended release 24 hr 80 mg PO QHS Referrals / Follow Up: Noah Amador MD [Primary Care Provider] - Within 2 Weeks Disposition Disposition (needs filled in before D/C Order can be placed): Home, Self Care Charges/Coding Visit Charges Inpatient E&M: 39694 Disch Hosp >30min
[2025-04-01 11:23] VITALS: BP 105/68; PULSE 60; RESP 16; TEMP 36.8; O2SAT 99
[2025-04-01] MEDS: Naltrexone Microspheres 380 MG SYRINGE IM (11:38)
[2025-04-01] MEDS: Vivitrol Administration Needles 1 EACH MC (11:40)
[2025-04-01] MEDS: Vivitrol ID Card 1 EACH MC (11:41)
--- NOTE | 2025-04-01 15:14 | CHAPLAIN ---
Type of Pastoral Visit ___ Initial Visit ___ Follow-up Visit ___ On-call Visit ___ General Patient Visit ___ Spiritual Assessment ___ Family Conference ___ Bereavement ___ Rapid Response ___ Code Blue ___ Other (describe below) Pastoral Care Referral From ___ Patient ___ Family ___ Nurse ___ Physician ___ Clinical Office Technician ___ Relay Dispatcher ___ Other (describe below) Sacrament/Intervention ___ Active listening ___ Anointing ___ Jainism ___ Bereavement ___ Communion ___ Kassie exploration ___ ___ Life review ___ Prayer ___ Reconciliation ___ Sacrament of Sick ___ Supportive presence ___ Wedding ___ Other (describe below) Pastoral Comments patient was walking the halls being impatient with waiting for discharge; pt willing to have this windows software developer walk with him and talk; pt is excited about leaving for home and knowing that his mother will demand changes in his life; pt is given words of affirmation for his future and a prayer for good recovery for the future; pt again expresses appreciation for the support shown to him
== END 2025-04-01 12:07 | disposition home or self-care (01) | DRG 775 ==
LOC: ED 20:55 → MS3 22:41
PROVIDERS: Admitting Provider Internal Medicine; Emergency Provider Emergency Medicine; PCP Family Medicine; Visit Provider Internal Medicine
DX: F10.239 Alcohol dependence with withdrawal, unspecified (principal); I10 Essential (primary) hypertension; F12.10 Cannabis abuse, uncomplicated; F32.A Depression, unspecified; F10.229 Alcohol dependence with intoxication, unspecified; Z79.899 Other long term (current) drug therapy; Z98.52 Vasectomy status; Y90.8 Blood alcohol level of 240 mg/100 ml or more
CPT/HCPCS: 36415; 80053; 80307; 81001; 82077; 82607; 82746; 83735; 84100; 84443; 85025; 85610; 99283; A4216